=== PATIENT | female | born 1985 | race Two or more races ===

== ENCOUNTER 2018-08-16 18:09 | Emergency (ER) | payer OTHER ==
[~2018-08-16] VITALS: Ht 160 cm; Wt 78.0 kg
== END 2018-08-17 12:24 | disposition home or self-care (01) ==
LOC: ER 18:09
DX: O03.4 Incomplete spontaneous abortion without complication (principal)

== ENCOUNTER 2022-11-25 09:00 | Outpatient (CLI) | payer OTHER | END 2022-11-25 09:08 | disposition home or self-care (01) | LOC: RAD 09:00 | PROVIDERS: ATTEND Obstetrics & Gynecology Reproductive Endocrinology | DX: Q50.6 Other congenital malformations of fallopian tube and broad ligament (principal); N94.9 Unspecified condition associated with female genital organs and menstrual cycle ==